=== PATIENT | female | born 1960 | race Caucasian/White ===

== ENCOUNTER 2020-06-02 10:26 | Emergency (ER) | payer MEDICARE, OTHER ==
[2020-06-02 10:55] VITALS: BP 165/118; PULSE 86; RESP 18; TEMP 98.4
--- NOTE | 2020-06-02 11:19 | ED ---
Abdominal Pain HPI - General Chief Complaint: Abdominal Pain Stated Complaint: abd pain, diarrhea Time Seen by Provider: 06/02/20 10:59 Source: patient, RN notes reviewed, old records reviewed Mode of arrival: ambulatory Limitations: no limitations - History of Present Illness Initial Comments: This patient's a pleasant 59-year-old female who presents emergency department today stating that she recently was out of rehab and now living in a [facility]. She states that since being discharged from rehab [facility] she's had significant diarrhea. She reports a prior to going to the [facility] she was on azithromycin for a sinus infection. She states she finished the antibiotics since that time has been having foul-smelling diarrhea. She denies any specific abdominal pain at this time but did report occasional right-sided pains that happen intermittently. She denies any change in urination. She reports normal appetite. Denies fevers or chills. - Related Data Allergies Allergy/AdvReac Type Severity Reaction Status Date / Time No Known Allergies Allergy Verified 06/02/20 10:55 Review of Systems ROS Statement: Those systems with pertinent positive or pertinent negative responses have been documented in the HPI. ROS Other: All systems not noted in ROS Statement are negative. Past Medical History Past Medical History: No Reported History Additional Past Medical History / Comment(s): substance abuse, iv drug abuse - clean, hepatitis c Past Surgical History: No Surgical Hx Reported Smoking Status: Current every day smoker Past Alcohol Use History: Abuse Past Drug Use History: IV Drug Use General Exam - General Exam Comments Initial Comments: Talkative 59-year-old female. Alert and oriented. No distress. Limitations: no limitations General appearance: alert, in no apparent distress Head exam: Present: atraumatic, normocephalic, normal inspection Eye exam: Present: normal appearance, PERRL, EOMI. Absent: scleral icterus, conjunctival injection, periorbital swelling ENT exam: Present: normal exam, mucous membranes moist Neck exam: Present: normal inspection Respiratory exam: Present: normal lung sounds bilaterally Cardiovascular Exam: Present: regular rate, normal rhythm, normal heart sounds. Absent: systolic murmur, diastolic murmur, rubs, gallop, clicks GI/Abdominal exam: Present: soft, normal bowel sounds. Absent: distended, tend erness, guarding, rebound, rigid Extremities exam: Present: normal inspection, full ROM, normal capillary refill. Absent: tenderness, pedal edema, joint swelling, calf tenderness Back exam: Present: normal inspection Neurological exam: Present: alert, oriented X3, CN II-XII intact Psychiatric exam: Present: normal affect, normal mood Skin exam: Present: warm, dry, intact, normal color. Absent: rash Course Vital Signs 06/02/20 10:51 Temperature 98.4 F Pulse Rate 86 Respiratory 18 Rate Blood Pressure 165/118 O2 Sat by Pulse 96 Oximetry Medical Decision Making - Medical Decision Making 9-year-old female presents the ER today for 10 days of diarrhea. Patient was either myself has no abdominal tenderness. He did offer to test for C. diff testing her history of antibiotic use recently. Patient was initially agreeable to starting an IV and fluids labwork. As soon as after I exited the room and attempt was to start an IV she stated she needed to leave. When I discussed why she states she had Aleve for family reasons. Patient does agree to sign AGAINST MEDICAL ADVICE. I will write the Patient to have outpatient stool studies completed if she can do this bring him back for testing. Patient understands plan Disposition Clinical Impression: Diarrhea Disposition: Left Against Medical Advice Condition: Stable Additional Instructions: Patient can bring stool sample back for further testing. Follow-up with primary care doctor. You are leaving AGAINST MEDICAL ADVICE and accepted the risks of worsening symptoms or even . Is patient prescribed a controlled substance at d/c from ED?: No Referrals: None,Stated [Primary Care Provider] - 1-2 days Time of Disposition: 11:19
== END 2020-06-02 11:28 | disposition left against medical advice (07) ==
LOC: EC 10:26
DX: R19.7 Diarrhea, unspecified (principal); F17.200 Nicotine dependence, unspecified, uncomplicated; Z53.29 Procedure and treatment not carried out because of patient's decision for other reasons
CPT/HCPCS: 99284